=== PATIENT | female | born 1960 | race Caucasian/White ===

== ENCOUNTER → 2016-12-04 | Outpatient (CLI) | payer BC ==
[~2016-12-04] MED LIST: BUPRTAB51 PO; CALC625T13 PO; CIPR-255 PO; CTP/1 PO; ESTR0.5T3 PO; LISI-787 PO; MEDR2.5T PO; MELA1TAB5 PO; METR-162 PO; MULT-190 PO; MULT-506 PO; ONDA4TAB10 SL; OXYC1TAB3 PO; PANT40TA PO; SENNTAB23 PO; SERT50TA PO; TRAZ50TA35 PO
--- NOTE | 2016-12-04 15:25 | DIAGNOSTIC IMAGING REPORT ---
CHEST 2 VIEWS ROUTINE HISTORY: COUGH COMPARISON: Chest 08/30/2016. FINDINGS: The lungs are clear. Cardiac silhouette is normal in size. No pleural effusions. No pneumothorax. IMPRESSION: No acute process. Electronically signed by: Yonathan Griffiths M.D. 12/04/2016 3:23 PM Dictated Date/Time: 12/04/2016 3:22 PM
== END | disposition home or self-care (01) ==
LOC: C.RAD 15:04
PROVIDERS: ATTEND Internal Medicine
DX: R05 Cough (principal)

== ENCOUNTER → 2017-02-28 | Outpatient (CLI) | payer BC | END | disposition home or self-care (01) | LOC: C.LABSPEC 17:42 | PROVIDERS: ATTEND Obstetrics & Gynecology | DX: N95.0 Postmenopausal bleeding (principal) ==

== ENCOUNTER → 2017-03-09 | Outpatient (CLI) | payer BC | END | disposition home or self-care (01) | LOC: C.PAPS 09:49 | PROVIDERS: ATTEND Obstetrics & Gynecology | DX: Z01.419 Encounter for gynecological examination (general) (routine) without abnormal findings (principal); Z87.42 Personal history of other diseases of the female genital tract ==

== ENCOUNTER → 2017-05-05 | Outpatient (CLI) | payer BC ==
--- NOTE | 2017-05-05 15:25 | DIAGNOSTIC IMAGING REPORT ---
ABDOMEN FOR HERNIA CLINICAL HISTORY: Acute abdominal pain. Evaluate for inguinal or femoral hernia. COMPARISON STUDY: No previous studies for comparison. FINDINGS: No right or left inguinal or femoral hernia was identified by sonography. Note was made of a prominent structure within the right lower quadrant which demonstrated gut signature. This likely reflects a bowel loop. The appendix could appear similar although is considered less likely. IMPRESSION: 1. No inguinal or femoral hernia identified. 2. Prominent structure within the right lower quadrant which likely reflects a bowel loop. An abnormal appendix could appear similar although is considered somewhat less likely. This finding is nonspecific but the patient was tender at this site. If persistent pain, a CT of the abdomen and pelvis could be obtained. Electronically signed by: Raman Champan M.D. 05/05/2017 3:24 PM Dictated Date/Time: 05/05/2017 3:19 PM
--- NOTE | 2017-05-05 15:35 | DIAGNOSTIC IMAGING REPORT ---
KUB (3 views) CLINICAL HISTORY: Abdominal pain COMPARISON STUDY: No previous studies for comparison. FINDINGS: There are surgical clips within the right upper quadrant consistent with a prior cholecystectomy. There is scattered stool throughout the colon. There is no pathologic bowel dilatation. There are no calcifications suspicious for renal calculi. Pelvic basin calcifications likely represent phleboliths. There is an L5 spina bifida occulta. IMPRESSION: No evidence of bowel obstruction. Electronically signed by: Abdoul Delong M.D. 05/05/2017 3:33 PM Dictated Date/Time: 05/05/2017 3:32 PM
== END | disposition home or self-care (01) ==
LOC: C.ULTR 14:47
PROVIDERS: ATTEND Nurse Practitioner Family
DX: R10.9 Unspecified abdominal pain (principal); K59.00 Constipation, unspecified

== ENCOUNTER 2017-05-06 19:15 | Emergency (ER) | payer BC ==
[~2017-05-06] VITALS: Ht 172.7 cm; Wt 82.6 kg
[~2017-05-06 19:15] MED LIST changes: -CALC625T13 PO; -CIPR-255 PO; -METR-162 PO; -ONDA4TAB10 SL; -OPTIRAY 320 IV PRN; -OXYC1TAB3 PO; -PANT40TA PO; -SENNTAB23 PO
[2017-05-06 19:18] VITALS: TEMP 37; Ht 172.7 cm; Wt 82.6 kg
[2017-05-06] MEDS ORDERED: SODIUM CHLORIDE 0.9% 1000ML 1,000 ML IV STA (19:36)
[2017-05-06] MEDS ORDERED: PIPERACILLIN/TAZOBACTAM 4.5 GM/100ML D5W IV STA (19:36)
--- NOTE | 2017-05-06 19:45 | EMERGENCY ROOM VISIT NOTE ---
History Report prepared by Kelley: Homero Guillen Under the Supervision of: Anibal ThackerO. First contact with patient: 19:32 Chief Complaint: ABDOMINAL PAIN Stated Complaint: NEEDS IV ANTIBOITIC Nursing Triage Summary: Pt reports she has had abdominal pain and constipation since Tuesday. Pt had xray and US yesterday that were abnormal, and an outpatient CT scan today. Pt was told she has an abcess and diverticulitis and she needs IV antibiotics History of Present Illness The patient is a 57 year old female who presents to the Emergency Room with complaints of severe and worsening abdominal pain that began on Tuesday night, three days prior to arrival. The patient states that her pain began while having a bowel movement. She visited her primary care physician yesterday to have a ultra sound of her abdomen performed. This imaging study ruled out hernia but did reveal some unusual findings. She was advised to come back to [facility] today for a CT of her abdomen. This CT revealed diverticulitis and an abscess. She was again advised to come back to the emergency department to be admitted for further care. She is currently complaining of chills, but denies nausea, vomiting, rectal bleeding, or tarry stools. She does have a history of chronic constipation. Source of History: patient Onset: 3 days PALLET REPAIRER Position: abdomen, other Symptom Intensity: severe Timing: worsening Associated Symptoms: + chills, No nausea, No vomiting, No melena, No diarrhea Review of Systems See HPI for pertinent positives & negatives. A total of 10 systems reviewed and were otherwise negative. Past Medical & Surgical Medical Problems: (1) Depressive Disorder Nec (2) Hypertension Nos Surgical Problems: (1) History of cholecystectomy (2) Hx of LASIK Family History CHF (congestive heart failure) COPD (chronic obstructive pulmonary disease) Diabetes mellitus Hypertension No Family History of: DVT FHx: early ID Pulmonary embolism Social History Smoking Status: Never Smoker Alcohol Use: occasionally Marital Status: Housing Status: lives with family Occupation Status: employed Current/Historical Medications Scheduled Bupropion (Wellbutrin-Xl), 300 MG PO QAM Ciprofloxacin Hcl (Cipro), 500 MG PO BID Clonidine Hcl (Catapres), 0.1 MG PO HS Estradiol (Estradiol), 1 TAB PO QPM Lisinopril/Hctz (Zestoretic 20MG/12.5MG), 1 TAB PO QAM Medroxyprogesterone (Provera), 2.5 MG PO HS Metronidazole (Flagyl), 500 MG PO TID Multivitamin (Multivitamin), 1 TAB PO QAM Ocuvite Preservision (Ocuvite Preservision), 1 TAB PO HS Ondasetron Odt (Zofran Odt), 4 MG SL Q6H Sertraline (Zoloft), 50 MG PO QAM Trazodone Hcl (Trazodone), 50 MG PO HS Scheduled PRN Oxycodone Immediate Rel Tab (Roxicodone Ir), 1-2 TAB PO Q4H PRN for Severe Pain Allergies Coded Allergies: Aspirin (Unverified Allergy, Mild, "ESOPHAGEAL BURNING", 05/06/17) Tetracycline (Unverified Allergy, Mild, "ESOPHAGEAL BURNING", 05/06/17) Cat Dander (Verified Allergy, Unknown, Unknown reaction, 05/06/17) Dog Dander (Verified Allergy, Unknown, Unknown reaction, 05/06/17) Physical Exam Vital Signs Date Time Temp Pulse Resp B/P (MAP) Pulse Ox O2 Delivery O2 Flow Rate FiO2 05/06/17 21:40 72 18 115/65 99 Room Air 05/06/17 19:18 37.0 20 18 123/82 100 Room Air Physical Exam GENERAL: Patient is awake, alert, and mildly anxious appearing. Patient is resting comfortably. EYES: The conjunctivae are clear. The pupils are round and reactive. EARS, NOSE, MOUTH AND THROAT: The nose is without any evidence of any deformity. Mucous membranes are moist tongue is midline NECK: The neck is nontender and supple. RESPIRATORY: Normal respiratory effort is noted there is no evidence of wheezing rhonchi or rales CARDIOVASCULAR: Regular rate and rhythm noted there no murmurs rubs or gallops normal S1 normal S2 GASTROINTESTINAL: The abdomen is mildly distended but soft. Bowel sounds are present in all quadrants. There is lower abdominal tenderness to palpation. No specific rebounding, guarding, or rigidity. MUSCULOSKELETAL/EXTREMITIES: There is no evidence of gross deformity full range of motion is noted in the hips and shoulders SKIN: There is no obvious evidence of any rash. There are no petechiae, pallor or cyanosis noted. NEUROLOGIC: Patient is awake alert and oriented x3. Medical Decision & Procedures Laboratory Results 05/06/17 19:50 Red Blood Count 4.53, Mean Corpuscular Volume 87.2, Mean Corpuscular Hemoglobin 29.4, Mean Corpuscular Hemoglobin Concent 33.7, Mean Platelet Volume 9.3, Neutrophils (%) (Auto) 71.9, Lymphocytes (%) (Auto) 16.4, Monocytes (%) (Auto) 10.5, Eosinophils (%) (Auto) 0.7, Basophils (%) (Auto) 0.2, Neutrophils # (Auto ) 6.93, Lymphocytes # (Auto) 1.58, Monocytes # (Auto) 1.01, Eosinophils # (Auto ) 0.07, Basophils # (Auto) 0.02 05/06/17 19:50 05/06/17 20:40 Test 05/06/17 19:50 05/06/17 20:40 White Blood Count 9.64 K/uL (4.8-10.8) Red Blood Count 4.53 M/uL (4.2-5.4) Hemoglobin 13.3 g/dL (12.0-16.0) Hematocrit 39.5 % (37-47) Mean Corpuscular Volume 87.2 fL (80-100) Mean Corpuscular Hemoglobin 29.4 pg (25-34) Mean Corpuscular Hemoglobin Concent 33.7 g/dl (32-36) Platelet Count 302 K/uL (130-400) Mean Platelet Volume 9.3 fL (7.4-10.4) Neutrophils (%) (Auto) 71.9 % Lymphocytes (%) (Auto) 16.4 % Monocytes (%) (Auto) 10.5 % Eosinophils (%) (Auto) 0.7 % Basophils (%) (Auto) 0.2 % Neutrophils # (Auto) 6.93 K/uL (1.4-6.5) Lymphocytes # (Auto) 1.58 K/uL (1.2-3.4) Monocytes # (Auto) 1.01 K/uL (0.11-0.59) Eosinophils # (Auto) 0.07 K/uL (0-0.5) Basophils # (Auto) 0.02 K/uL (0-0.2) RDW Standard Deviation 42.3 fL (36.4-46.3) RDW Coefficient of Variation 13.1 % (11.5-14.5) Immature Granulocyte % (Auto) 0.3 % Immature Granulocyte # (Auto) 0.03 K/uL (0.00-0.02) Anion Gap 9.0 mmol/L (3-11) Est Creatinine Clear Calc Drug Dose 94.6 ml/min Estimated GFR () 105.2 Estimated GFR (Non- 90.8 BUN/Creatinine Ratio 17.8 (10-20) Calcium Level 8.9 mg/dl (8.5-10.1) Total Bilirubin 0.5 mg/dl (0.2-1) Aspartate Amino Transf (AST/SGOT) 16 U/L (15-37) Alanine Aminotransferase (ALT/SGPT) 22 U/L (12-78) Alkaline Phosphatase 79 U/L (45-117) Total Protein 7.2 gm/dl (6.4-8.2) Albumin 3.4 gm/dl (3.4-5.0) Lipase 352 U/L (73-393) Chemistry Specimen Hemolysis Prothrombin Time 10.7 SECONDS (9.0-12.0) Prothromb Time International Ratio 1.0 (0.9-1.1) Activated Partial Thromboplast Time 27.7 SECONDS (21.0-31.0) Partial Thromboplastin Ratio 1.1 Direct Bilirubin 0.2 mg/dl (0-0.2) Laboratory results per my review. Medications Administered Medications (Trade) Dose Ordered Sig/Rose Route Start Time Stop Time Status Last Admin Dose Admin Sodium Chloride 1,000 ml @ 999 mls/hr Q1H1M STAT IV 05/06/17 19:36 05/06/17 20:36 DC 05/06/17 19:53 999 MLS/HR Piperacillin Sod/ Tazobactam Sod (Zosyn Iv) 4.5 gm NOW STAT IV 05/06/17 19:36 05/06/17 19:38 DC 05/06/17 19:52 4.5 GM Ciprofloxacin (Cipro 500MG Home Pack) 1 homepack UD ONCE PO 05/06/17 21:15 05/06/17 21:16 DC 05/06/17 21:40 1 HOMEPACK Oxycodone HCl (Roxicodone Immediate Rel 5MG Home Pack) 1 homepack UD ONCE PO 05/06/17 21:15 05/06/17 21:16 DC 05/06/17 21:40 1 HOMEPACK ED Course 1934: The patient was evaluated in room B8. A complete history and physical examination were performed. 1935: Ordered Zosyn 4.5 gm IV, Sodium Chloride 1000 mL @ 999 mL/hr IV. 1945: I discussed the case [facility] He is aware of the patient. 1950: I discussed the case with Dr. Yesi AQUINO General Surgery at this time. He will evaluate the patient for possible intervention. He feels she can be managed as an outpatient. 2114: Ordered Oxycodone HCl 1 homepack PO, Ciprofloxacin 1 homepack PO. 2109: After reevaluation with the patient she is in agreement with the treatment plan. She will be discharged home. Medical Decision Differential diagnosis: Etiologies such as appendicitis, diverticulitis, PUD, biliary pathology, UTI, pancreatitis, obstruction, mesenteric ischemia, aortic pathology, infections, inflammatory bowel disease, renal colic, as well as others were entertained. Nursing notes reviewed. The patient's previous CT report was reviewed. The patient is a 57-year-old female who is been having abdominal pain for approximately one week. An outpatient CT revealed diverticulitis with intramural abscess. The patient does not a fever and her white blood cell count is normal. I [facility] as well as the on-call general surgeon. At this time it is felt the patient would do well as an outpatient with antibiotics and pain medication. She was given IV antibiotics in the emergency department. She was encouraged to follow-up with her primary care physician is possible return the emergency Department immediately for his symptoms develop such as high fever severe pain nausea vomiting rigid abdomen or if any other worrisome symptoms develop. Consults Time Called: 1939 Consulting Physician: Dr. Brenda AQUINO Hospitalist Returned Call: 1945 I discussed the case with Dr[facility]. He is aware of the patient. Additional Consults: Time Called: 1940 Consulted Physician: Dr. Yesi AQUINO General Surgery Returned Call: 1950 Additional Comments: I discussed the case with Dr. Yesi AQUINO General Surgery at this time. He will evaluate the patient for possible intervention. Impression Primary Impression: Diverticulitis Scribe Attestation The scribe's documentation has been prepared under my direction and personally reviewed by me in its entirety. I confirm that the note above accurately reflects all work, treatment, procedures, and medical decision making performed by me. Departure Information Dispostion Home / Self-Care Prescriptions Ondasetron Odt (ZOFRAN ODT) 4 Mg Tab 4 MG SL Q6H for Nausea, #15 TAB Prov: Oren Kim, DO 05/06/17 Metronidazole (FLAGYL) 500 Mg Tab 500 MG PO TID, #30 TAB Prov: Oren Kim, DO 05/06/17 Ciprofloxacin Hcl (CIPRO) 500 Mg Tab 500 MG PO BID, #20 TAB Prov: Oren Kim, DO 05/06/17 Oxycodone Immediate Rel Tab (ROXICODONE IR) 5 Mg Tab 1-2 TAB PO Q4H Y for Severe Pain, #24 TAB Prov: Oren Kim, DO 05/06/17 Referrals Shantel [email or web address] (PCP) Forms Call Back Authorization, HOME CARE DOCUMENTATION FORM, IMPORTANT VISIT INFORMATION Patient Instructions [facility] Additional Instructions Continue all medications as prescribed. Follow-up with your family this week for reevaluation. Return to the emergency department immediately if symptoms change worsen or the need arises. Problem Qualifiers Primary Impression: Diverticulitis Diverticulitis site: large intestine Diverticulitis bleeding: unspecified bleeding status Diverticulitis complication: with abscess Qualified Codes: K57.20 - Diverticulitis of large intestine with perforation and abscess without bleeding
[2017-05-06 20:01] LABS: BASO % 0.2 %; BASO ABS # 0.02 K/uL (0-0.2); COMPLETE YES; EOS % 0.7 %; HEMATOCRIT 39.5 % (37-47); IG% 0.3 %; LYMPH % 16.4 %; LYMPH ABS # 1.58 K/uL (1.2-3.4); MEAN CELL VOLUME 87.2 fL (80-100); MEAN CORPUSCULAR HEMOGLOBIN 29.4 pg (25-34); MEAN CORPUSCULAR HGB CONC 33.7 g/dl (32-36); MEAN PLATELET VOLUME 9.3 fL (7.4-10.4); MONO % 10.5 %; NEUT % 71.9 %; PLATELET COUNT 302 K/uL (130-400); RED BLOOD COUNT 4.53 M/uL (4.2-5.4); WHITE BLOOD COUNT 9.64 K/uL (4.8-10.8)
[2017-05-06 20:30] LABS: ALKALINE PHOSPHATASE 79 U/L (45-117); ALT/SGPT 22 U/L (12-78); AST/SGOT 16 U/L (15-37); BLOOD UREA NITROGEN 13 mg/dl (7-18); BUN/CREATININE RATIO 17.8 (10-20); CALCIUM 8.9 mg/dl (8.5-10.1); CARBON DIOXIDE 31 mmol/L (21-32); CHLORIDE 99 mmol/L (98-107); CREATININE 0.73 mg/dl (0.60-1.20); GLUCOSE 72 mg/dl (70-99); POTASSIUM 3.6 mmol/L (3.5-5.1); SODIUM 139 mmol/L (136-145)
[2017-05-06 20:58] LABS: PARTIAL THROMBOPLASTIN RATIO 1.1; PROTHROMBIN TIME (PATIENT) 10.7 SECONDS (9.0-12.0)
[2017-05-06 21:00] LABS: POTASSIUM 3.4 mmol/L (3.5-5.1)
[2017-05-06] MEDS ORDERED: METR-162 PO (21:08)
[2017-05-06] MEDS ORDERED: OXYC1TAB3 PO (21:08)
[2017-05-06] MEDS ORDERED: CIPR-255 PO (21:08)
[2017-05-06] MEDS ORDERED: ONDA4TAB10 SL (21:08)
[2017-05-06] MEDS ORDERED: CIPROFLOXACIN 500MG HOME PACK PO ONE (21:15)
[2017-05-06] MEDS ORDERED: OXYCODONE IR HOME PACK PO ONE (21:15)
[2017-05-06 21:40] VITALS: BP 115/65; PULSE 72; O2SAT 99
[2017-08-11] MEDS ORDERED: PANT40TA PO (12:48)
[2017-08-11] MEDS ORDERED: SENNTAB23 PO (12:48)
[2017-08-11] MEDS ORDERED: CALC625T13 PO (12:48)
== END 2017-05-06 22:04 | disposition home or self-care (01) ==
LOC: C.EDB 19:16
DX: K57.20 Diverticulitis of large intestine with perforation and abscess without bleeding (principal); I10 Essential (primary) hypertension; F33.41 Major depressive disorder, recurrent, in partial remission; Z83.3 Family history of diabetes mellitus; Z82.49 Family history of ischemic heart disease and other diseases of the circulatory system

== ENCOUNTER → 2017-05-06 | Outpatient (CLI) | payer BC ==
[~2017-05-06] MED LIST changes: +OPTIRAY 320 IV PRN
--- NOTE | 2017-05-06 17:09 | DIAGNOSTIC IMAGING REPORT ---
CT ABD/PELVIS IV AND ORAL CONT CLINICAL HISTORY: Lower abdominal pain COMPARISON STUDY: None. TECHNIQUE: Following the IV administration of 100 mL of Optiray-320, CT scan of the abdomen and pelvis was performed from the lung bases to the proximal femurs. Images are reviewed in the axial, sagittal, and coronal planes. IV contrast was administered without complication. CT DOSE: 956.98 mGycm FINDINGS: Lower chest: The heart is normal in size and configuration, without pericardial effusion. The lung bases and pleural spaces are clear. Liver: The contrast-enhanced liver is normal in size, contour, and attenuation. There is no intrahepatic biliary ductal dilatation. The hepatic veins and portal veins are patent. Gallbladder: Surgically absent Spleen: Normal in size and attenuation. Pancreas: Unremarkable. Adrenal glands: Unremarkable. Kidneys: There is a 44 mm left renal cyst. There is no hydronephrosis. Bowel: There are no transition zones indicate bowel obstruction. The appendix is not visualized with certainty. There are no findings to indicate acute appendicitis. There is marked sigmoid wall thickening with infiltration of the perisigmoid fat. The findings are indicative of acute diverticulitis. There is a suspected 17 mm intramural abscess. Peritoneum: There is no intraperitoneal free air or abdominal ascites. Vasculature: The abdominal aorta is normal in course and caliber. Adenopathy: There are multiple small aortocaval lymph nodes which are not pathologically enlarged by size criteria. Pelvic viscera: There is superior bladder wall thickening, likely secondary to the adjacent diverticulitis. Skeletal structures: There is bilateral L5 spondylolysis. There is a grade 1 spondylolisthesis of L5 and S1. IMPRESSION: 1. Acute sigmoid diverticulitis with a suspected 17 mm intramural abscess. There is secondary thickening of the superior bladder wall. Electronically signed by: Abdoul Delong M.D. 05/06/2017 5:08 PM Dictated Date/Time: 05/06/2017 5:02 PM
== END | disposition home or self-care (01) ==
LOC: C.CTS 14:44
PROVIDERS: ATTEND Nurse Practitioner Family
DX: R10.9 Unspecified abdominal pain (principal); K57.32 Diverticulitis of large intestine without perforation or abscess without bleeding; N32.9 Bladder disorder, unspecified

== ENCOUNTER 2017-05-11 10:05 | Emergency (ER) | payer BC ==
[~2017-05-11] VITALS: Ht 172.7 cm; Wt 80.5 kg
[~2017-05-11 10:05] MED LIST changes: +CIPR-255 PO; -MELA1TAB5 PO; +METR-162 PO; +ONDA4TAB10 SL; +OXYC1TAB3 PO
[2017-05-11 10:07] VITALS: TEMP 36.6; Ht 172.7 cm; Wt 80.5 kg
[2017-05-11] MEDS ORDERED: ONDANSETRON INJ 2 MG/ML 2 ML VIAL IV STA (10:25)
[2017-05-11] MEDS ORDERED: SODIUM CHLORIDE 0.9% 1000ML 2,000 ML IV STA (10:25)
[2017-05-11 11:13] LABS: BASO % 0.4 %; BASO ABS # 0.02 K/uL (0-0.2); COMPLETE YES; EOS % 0.8 %; IG% 0.4 %; LYMPH % 22.1 %; LYMPH ABS # 1.13 K/uL (1.2-3.4); MEAN CELL VOLUME 85.5 fL (80-100); MEAN CORPUSCULAR HEMOGLOBIN 28.8 pg (25-34); MEAN CORPUSCULAR HGB CONC 33.8 g/dl (32-36); MEAN PLATELET VOLUME 9.4 fL (7.4-10.4); MONO % 10.5 %; NEUT % 65.8 %; PLATELET COUNT 385 K/uL (130-400); RED BLOOD COUNT 4.68 M/uL (4.2-5.4); WHITE BLOOD COUNT 5.12 K/uL (4.8-10.8)
[2017-05-11 11:20] LABS: BUN/CREATININE RATIO 7.5 (10-20); CREATININE 0.81 mg/dl (0.60-1.20); POTASSIUM 3.1 mmol/L (3.5-5.1)
[2017-05-11 11:24] LABS: URINE APPEARANCE CLEAR (CLEAR); URINE BILIRUBIN NEG (NEG); URINE COLOR YELLOW; URINE EPITHELIAL CELL AUTO >30 /lpf (0-5); URINE NITRITE NEG (NEG); URINE PH 7.5 (4.5-7.5); URINE SPECIFIC GRAVITY 1.006 (1.000-1.030); UROBILINOGEN NEG (NEG); ZZUR CULT IF INDIC CLEAN CATCH NO
[2017-05-11] MEDS ORDERED: POTASSIUM CHLORIDE 10 MEQ TABCR PO STA (11:25)
[2017-05-11 11:27] LABS: CALCIUM 9.2 mg/dl (8.5-10.1)
[2017-05-11 11:34] LABS: MANUAL MICROSCOPIC REQUIRED? NO; REVIEW REQ? NO
[2017-05-11 12:51] VITALS: BP 145/87; PULSE 63; O2SAT 98
--- NOTE | 2017-05-11 16:38 | EMERGENCY ROOM VISIT NOTE ---
History Report prepared by Kelley: Lyssa Ayoub Under the Supervision of: Dr. Ty Kang D.O. First contact with patient: 10:11 Chief Complaint: DIARRHEA Stated Complaint: DIARRHEA, NAUSEA History of Present Illness The patient is a 57 year old female who presents to the Emergency Room with complaints of intermittent diarrhea for the past 4 days. The patient developed abdominal pain last week and saw her PCP for these symptoms. She had an US, x- ray, and CT scan as an outpatient last week. Her PCP called her and told her that the CT scan showed diverticulitis with an intramural abscess, and she should come to the ED for further evaluation at that time. The patient came to the ED 5 days ago and received IV antibiotics. She was evaluated by Dr. Walker who recommended outpatient treatment with Cipro and Flagyl. She has been taking these medications as prescribed. The patient states that the next day she started experiencing diarrhea that has persisted for the past 4 days. Two days ago she called her PCP because she was having about 50 bowel movements a day. She was advised to have clear liquids for 24 hours. Her diarrhea improved slightly with the liquid diet. Last night she ate some Jello and a few pretzels and states that almost immediately her diarrhea worsened. Her stool is dark green and watery. The patient states that her abdominal pain has improved but she is still having occasional shooting pains that she rates as a 4/10 in severity. 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 She called her PCP this morning and was advised to come to the ED for evaluation. She reports a personal history of C-Diff. Pt denies headache, fevers, chest pain, shortness of breath, vomiting, pain with urination , and melena. Source of History: patient Onset: 4 days ago Position: abdomen Symptom Intensity: 4/10 Quality: other (watery, dark green diarrhea) Timing: intermittent Modifying Factors (Worsening): eating Modifying Factors (Relieving): other (liquid diet) Associated Symptoms: + nausea, + abdominal pain, No fevers, No headache, No chest pain, No SOB, No vomiting, No melena, No urinary symptoms Review of Systems See HPI for pertinent positives & negatives. A total of 10 systems reviewed and were otherwise negative. Past Medical & Surgical Medical Problems: (1) Depressive Disorder Nec (2) Hypertension Nos Surgical Problems: (1) History of cholecystectomy (2) Hx of LASIK Family History CHF (congestive heart failure) COPD (chronic obstructive pulmonary disease) Diabetes mellitus Hypertension No Family History of: DVT FHx: early [place] Pulmonary embolism Social History Smoking Status: Former Smoker Alcohol Use: occasionally Marital Status: Housing Status: lives with family Occupation Status: employed Current/Historical Medications Scheduled Bupropion (Wellbutrin-Xl), 300 MG PO QAM Ciprofloxacin Hcl (Cipro), 500 MG PO BID Clonidine Hcl (Catapres), 0.1 MG PO HS Estradiol (Estradiol), 1 TAB PO QPM Lisinopril/Hctz (Zestoretic 20MG/12.5MG), 1 TAB PO QAM Medroxyprogesterone (Provera), 2.5 MG PO HS Metronidazole (Flagyl), 500 MG PO TID Multivitamin (Multivitamin), 1 TAB PO QAM Ocuvite Preservision (Ocuvite Preservision), 1 TAB PO HS Ondasetron Odt (Zofran Odt), 4 MG SL Q6H Sertraline (Zoloft), 50 MG PO QAM Trazodone Hcl (Trazodone), 50 MG PO HS Scheduled PRN Oxycodone Immediate Rel Tab (Roxicodone Ir), 1-2 TAB PO Q4H PRN for Severe Pain Allergies Coded Allergies: Aspirin (Unverified Allergy, Mild, "ESOPHAGEAL BURNING", 05/11/17) Tetracycline (Unverified Allergy, Mild, "ESOPHAGEAL BURNING", 05/11/17) Cat Dander (Verified Allergy, Unknown, Unknown reaction, 05/11/17) Dog Dander (Verified Allergy, Unknown, Unknown reaction, 05/11/17) Physical Exam Vital Signs Date Time Temp Pulse Resp B/P (MAP) Pulse Ox O2 Delivery O2 Flow Rate FiO2 05/11/17 12:51 63 16 145/87 98 05/11/17 11:45 61 16 152/91 98 Room Air 05/11/17 10:07 36.6 65 20 114/82 97 Room Air Physical Exam GENERAL: alert, sitting up in bed, well appearing, well nourished, no distress, non-toxic EYE EXAM: normal conjunctiva, PERRL and EOM's intact OROPHARYNX: no exudate, no erythema, lips, buccal mucosa, and tongue normal and mucous membranes are moist NECK: supple, no nuchal rigidity, no adenopathy, non-tender LUNGS: Clear to auscultation. Normal chest wall mechanics HEART: no murmurs, S1 normal and S2 normal ABDOMEN: abdomen soft, non-tender, normo-active bowel sounds, no masses, no rebound or guarding. Stool heme negative. BACK: Back is symmetrical on inspection and there is no deformity, no midline tenderness, no CVA tenderness. SKIN: no rashes and no bruising UPPER EXTREMITIES: upper extremities are grossly normal. LOWER EXTREMITIES: No pitting edema. NEURO EXAM: Normal sensorium, cranial nerves II-XII grossly intact, normal speech, no gross weakness of arms, no gross weakness of legs. Medical Decision & Procedures Laboratory Results 05/11/17 10:35 Red Blood Count 4.68, Mean Corpuscular Volume 85.5, Mean Corpuscular Hemoglobin 28.8, Mean Corpuscular Hemoglobin Concent 33.8, Mean Platelet Volume 9.4, Neutrophils (%) (Auto) 65.8, Lymphocytes (%) (Auto) 22.1, Monocytes (%) (Auto) 10.5, Eosinophils (%) (Auto) 0.8, Basophils (%) (Auto) 0.4, Neutrophils # (Auto ) 3.37, Lymphocytes # (Auto) 1.13, Monocytes # (Auto) 0.54, Eosinophils # (Auto ) 0.04, Basophils # (Auto) 0.02 05/11/17 10:35 Test 05/11/17 10:30 05/11/17 10:35 Urine Color YELLOW Urine Appearance CLEAR (CLEAR) Urine pH 7.5 (4.5-7.5) Urine Specific [place] 1.006 (1.000-1.030) Urine Protein NEG (NEG) Urine Glucose (UA) NEG (NEG) Urine Ketones NEG (NEG) Urine Occult Blood NEG (NEG) Urine Nitrite NEG (NEG) Urine Bilirubin NEG (NEG) Urine Urobilinogen NEG (NEG) Urine Leukocyte Esterase NEG (NEG) Urine WBC (Auto) 1-5 /hpf (0-5) Urine RBC (Auto) 0-4 /hpf (0-4) Urine Hyaline Casts (Auto) 1-5 /lpf (0-5) Urine Epithelial Cells (Auto) >30 /lpf (0-5) Urine Bacteria (Auto) NEG (NEG) White Blood Count 5.12 K/uL (4.8-10.8) Red Blood Count 4.68 M/uL (4.2-5.4) Hemoglobin 13.5 g/dL (12.0-16.0) Hematocrit 40.0 % (37-47) Mean Corpuscular Volume 85.5 fL (80-100) Mean Corpuscular Hemoglobin 28.8 pg (25-34) Mean Corpuscular Hemoglobin Concent 33.8 g/dl (32-36) Platelet Count 385 K/uL (130-400) Mean Platelet Volume 9.4 fL (7.4-10.4) Neutrophils (%) (Auto) 65.8 % Lymphocytes (%) (Auto) 22.1 % Monocytes (%) (Auto) 10.5 % Eosinophils (%) (Auto) 0.8 % Basophils (%) (Auto) 0.4 % Neutrophils # (Auto) 3.37 K/uL (1.4-6.5) Lymphocytes # (Auto) 1.13 K/uL (1.2-3.4) Monocytes # (Auto) 0.54 K/uL (0.11-0.59) Eosinophils # (Auto) 0.04 K/uL (0-0.5) Basophils # (Auto) 0.02 K/uL (0-0.2) RDW Standard Deviation 38.5 fL (36.4-46.3) RDW Coefficient of Variation 12.4 % (11.5-14.5) Immature Granulocyte % (Auto) 0.4 % Immature Granulocyte # (Auto) 0.02 K/uL (0.00-0.02) Anion Gap 10.0 mmol/L (3-11) Est Creatinine Clear Calc Drug Dose 84.3 ml/min Estimated GFR () 92.8 Estimated GFR (Non- 80.1 BUN/Creatinine Ratio 7.5 (10-20) Calcium Level 9.2 mg/dl (8.5-10.1) Total Bilirubin 0.6 mg/dl (0.2-1) Direct Bilirubin 0.1 mg/dl (0-0.2) Aspartate Amino Transf (AST/SGOT) 34 U/L (15-37) Alanine Aminotransferase (ALT/SGPT) 33 U/L (12-78) Alkaline Phosphatase 84 U/L (45-117) Total Protein 7.2 gm/dl (6.4-8.2) Albumin 3.5 gm/dl (3.4-5.0) Lipase 164 U/L (73-393) Date/Time Source Procedure Growth Status 05/11/17 10:36 Stool C.difficile Toxin B Gene (PCR) - Final No C. difficile toxin B gene detected Complete Laboratory results per my review. Medications Administered Medications (Trade) Dose Ordered Sig/Rose Route Start Time Stop Time Status Last Admin Dose Admin Sodium Chloride 2,000 ml @ 999 mls/hr Q2H1M STAT IV 05/11/17 10:25 05/11/17 12:25 DC 05/11/17 10:45 999 MLS/HR Ondansetron HCl (Zofran Inj) 4 mg NOW STAT IV 05/11/17 10:25 05/11/17 10:26 DC 05/11/17 10:45 4 MG Potassium Chloride (Klor-Con M10) 40 meq NOW STAT PO 05/11/17 11:25 05/11/17 11:26 DC 05/11/17 11:43 40 MEQ ED Course ED COURSE: Vital signs were reviewed and showed normal vitals. The patients medical record was reviewed The above diagnostic studies were performed and reviewed. ED treatments and interventions as stated above. 1015: The patient was evaluated in room B11B. A complete history and physical examination was performed. 1025: Zofran 4 mg IV, NSS 2000 ml @ 999 mls/hr IV 1125: Klor-Con M10 40 meq PO 1213: I reassessed the patient and she feels better. I updated her on the results and we are waiting on the results of her C-Diff. 1241: Upon reevaluation, the patient is resting comfortably. I discussed my findings with the patient and she understands and agrees with the treatment plan. Based on the patients age, coexisting illnesses, exam and lab findings the decision to treat as an outpatient was made. The patient remained stable while under my care. The patient appeared well at the time of discharge. Medical Decision Differential diagnoses includes but is not limited to gastritis, peptic ulcer disease, GERD, gallbladder disease, pancreatitis, small bowel obstruction, acute coronary syndrome, pericarditis, ischemic bowel, irritable bowel disease, irritable bowel syndrome, appendicitis, diverticulitis, malignancy, hernia, urinary tract infection, torsion, perforation, trauma, infectious. Medication Reconciliation: I attest that I have personally reviewed the patient' s current medication list. Blood pressure screening: Patient was found to have an elevated blood pressure and was referred to their primary doctor for recheck and further treatment. Patient is a 57-year-old female with a recent diagnosis of diverticulitis with an intramural abscess was seen in the ER in case discussed with general surgery. She is placed on oral antibiotics and discharged home. Her pain has improved significantly. She does have a history of diverticulitis. CBC along with BMP shows a potassium of 3.1. LFTs along with bilirubin and lipase is negative. UA was negative. Potassium was repleted. She was given a bolus normal saline. Stool culture was negative for C. difficile. Patient had no significant abdominal pain on exam and was discharged to follow-up with primary care doctor and GI for her and she mural abscess and diarrhea. Impression Primary Impression: Diarrhea Additional Impressions: Hypokalemia Diverticulitis Scribe Attestation The scribe's documentation has been prepared under my direction and personally reviewed by me in its entirety. I confirm that the note above accurately reflects all work, treatment, procedures, and medical decision making performed by me. Departure Information Dispostion Home / Self-Care Referrals Shantel Hayes D.O. (PCP) Forms HOME CARE DOCUMENTATION FORM, IMPORTANT VISIT INFORMATION, WORK / SCHOOL INSTRUCTIONS Patient Instructions ED Diarrhea Viral, ED Diverticulitis, My [facility] Additional Instructions Please follow up with your primary care doctor with in the next 24 hours. Any worsening of your symptoms, please return to the ED immediately. this includes fevers greater than 100.4, worsening abdominal pain, passing out, blood in your stool, or any other concerning signs or symptoms from your standpoint. Please make sure you follow up with your primary care doctor and surgeon. Please which to a bland diet consisting of mostly liquids. Problem Qualifiers Primary Impression: Diarrhea Diarrhea type: unspecified type Qualified Codes: R19.7 - Diarrhea, unspecified Additional Impressions: Diverticulitis Diverticulitis site: unspecified part of intestinal tract Diverticulitis bleeding: unspecified bleeding status Diverticulitis complication: with abscess Qualified Codes: K57.80 - Diverticulitis of intestine, part unspecified, with perforation and abscess without bleeding
[2017-08-11] MEDS ORDERED: CALC625T13 PO (12:48)
[2017-08-11] MEDS ORDERED: SENNTAB23 PO (12:48)
[2017-08-11] MEDS ORDERED: PANT40TA PO (12:48)
== END 2017-05-11 12:53 | disposition home or self-care (01) ==
LOC: C.EDB 10:06
DX: R19.7 Diarrhea, unspecified (principal); E87.6 Hypokalemia; K57.80 Diverticulitis of intestine, part unspecified, with perforation and abscess without bleeding; R10.9 Unspecified abdominal pain; I10 Essential (primary) hypertension; F32.9 Major depressive disorder, single episode, unspecified; Z79.899 Other long term (current) drug therapy; Z86.19 Personal history of other infectious and parasitic diseases; Z87.891 Personal history of nicotine dependence; Z82.49 Family history of ischemic heart disease and other diseases of the circulatory system; Z83.3 Family history of diabetes mellitus; Z83.6 Family history of other diseases of the respiratory system

== ENCOUNTER → 2017-05-19 | Outpatient (CLI) | payer BC ==
[~2017-05-19] MED LIST changes: +CALC625T13 PO; -METR-162 PO; +OPTIRAY 320 IV PRN; +PANT40TA PO; +SENNTAB23 PO
--- NOTE | 2017-05-19 11:13 | DIAGNOSTIC IMAGING REPORT ---
CT ABD/PELVIS IV AND ORAL CONT CLINICAL HISTORY: K57.92 Acute [id number] LOWER ABDOMINAL PAIN. DIARRHEA. COMPARISON STUDY: 05/06/2017 TECHNIQUE: Following the IV administration of 94 mL of Optiray-320, CT scan of the abdomen and pelvis was performed from the lung bases to the proximal femurs. Images are reviewed in the axial, sagittal, and coronal planes. IV contrast was administered without complication. CT DOSE: 831.84 mGycm FINDINGS: Lower chest: The heart is normal in size and configuration, without pericardial effusion. The lung bases and pleural spaces are clear. Liver: The contrast-enhanced liver is normal in size, contour, and attenuation. There is no intrahepatic biliary ductal dilatation. The hepatic veins and portal veins are patent. Gallbladder: Surgically absent Spleen: Normal in size and attenuation. Pancreas: Unremarkable. Adrenal glands: Unremarkable. Kidneys: There is a 44 mm left renal cyst. Bowel: There are no transition zones indicate bowel obstruction. There is been marked improvement in the previous described sigmoid diverticulitis. There is no evidence of abscess. The appendix is not visualized with certainty. Peritoneum: There is no intraperitoneal free air or abdominal ascites. Vasculature: The abdominal aorta is normal in course and caliber. Adenopathy: None. Pelvic viscera: Bladder wall thickening is likely secondary to a nondistended bladder. Skeletal structures: No destructive osseous lesions are seen. IMPRESSION: Near complete interval resolution of the previous identified sigmoid diverticulitis. No evidence of abscess. Electronically signed by: Abdoul Delong M.D. 05/19/2017 11:11 AM Dictated Date/Time: 05/19/2017 11:07 AM
== END | disposition home or self-care (01) ==
LOC: C.CTS 08:32
PROVIDERS: ATTEND Registered Nurse
DX: K57.92 Diverticulitis of intestine, part unspecified, without perforation or abscess without bleeding (principal); R19.7 Diarrhea, unspecified; R10.30 Lower abdominal pain, unspecified; N28.1 Cyst of kidney, acquired

== ENCOUNTER → 2017-08-09 | Outpatient (CLI) | payer BC ==
[~2017-08-09] MED LIST changes: -OPTIRAY 320 IV PRN
--- NOTE | 2017-08-09 10:25 | DIAGNOSTIC IMAGING REPORT ---
(BARIUM SWALLOW) ESOPHAGUS CLINICAL HISTORY: ESOPHAGEAL DYSPHAGIA,REFLUX DISEASE COMPARISON STUDY: None FLUOROSCOPY TIME: 1.1 minutes. 20 fluoroscopic spot images were acquired.. NUMBER OF FLUOROSCOPIC IMAGES: 20 FINDINGS: The patient swallowed effervescent granules and barium without difficulty. Rapid sequence swallows were obtained in the AP and lateral projections. There is no aspiration. No esophageal masses or ulcerations are visualized. The patient swallowed one half barium tablet which freely passed into the stomach. IMPRESSION: No significant abnormalities. Electronically signed by: Abdoul Delong M.D. 08/09/2017 10:23 AM Dictated Date/Time: 08/09/2017 10:22 AM
== END | disposition home or self-care (01) ==
LOC: C.RAD 09:50
PROVIDERS: ATTEND Registered Nurse
DX: K20.9 Esophagitis, unspecified (principal); K21.9 Gastro-esophageal reflux disease without esophagitis; R13.14 Dysphagia, pharyngoesophageal phase

== ENCOUNTER → 2017-08-19 | Day surgery (SDC) | payer BC ==
[2017-08-11 12:49] VITALS: Ht 172.7 cm; Wt 77.3 kg
[~2017-08-19] VITALS: Ht 172.7 cm; Wt 77.3 kg
[~2017-08-19] MED LIST changes: -CIPR-255 PO; +LIDOCAINE HCL 2% 2 ML VIAL (20MG/ML) ONE; -MULT-190 PO; -ONDA4TAB10 SL; -OXYC1TAB3 PO; +PROPOFOL IV EMULSION 10 MG/ML 20 ML VIAL IV ONE; +SODIUM CHLORIDE 0.9% 500ML 500 ML IV ONE
--- NOTE | 2017-08-19 11:56 | Endo History and Physical ---
History & Physical Date of Service: Aug 19, 2017. Chief Complaint: ACUTE DIVERTICULITIS Referring Physician: DR. CLIFTON History of Present Illness 57 yo CF who presents for colonoscopy secondary to acute diverticulitis. Past Surgical History Hx Cardiac Surgery: No Hx Internal Defibrillator: No Hx Pacemaker: No Hx Abdominal Surgery: Yes (D&C, SELVIN) Hx of Implantable Prosthesis: No Hx Post-Op Nausea and Vomiting: No Hx Cancer Surgery: No Hx Thoracic Surgery: No Hx Orthopedic: No Hx Urinary Tract Surgery: No Family History IBD Social History Smoking Status: Former Smoker Hx Substance Use: No Hx Alcohol Use: No Allergies Coded Allergies: Aspirin (Verified Allergy, Mild, "ESOPHAGEAL BURNING", 08/11/17) Tetracycline (Verified Allergy, Mild, "ESOPHAGEAL BURNING", 08/11/17) Cat Dander (Verified Allergy, Unknown, Unknown reaction, 08/11/17) Dog Dander (Verified Allergy, Unknown, Unknown reaction, 08/11/17) Current Medications Reported Home Medications Medications Dose Route/Sig Max Daily Dose Days Date Category Stool Softener (Sennosides-Docusate Sodium) 1 Tab Tab 1 Tab PO BID 08/11/17 Reported Fiber Tabs (Calcium Polycarbophil) 625 Mg Tab 1 Tab PO BID 08/11/17 Reported Protonix (Pantoprazole Sodium) 40 Mg Tab 40 Mg PO QPM 08/11/17 Reported Zoloft (Sertraline HCl) 50 Mg Tab 50 Mg PO QAM 10/11/16 Reported Trazodone (Trazodone HCl) 50 Mg Tab 50 Mg PO HS 10/11/16 Reported Multivitamin (Multivitamins) Tab 1 Tab PO QAM 10/11/16 Reported Provera (Medroxyprogesterone Acetate) 2.5 Mg Tab 2.5 Mg PO Q2D 10/11/16 Reported Zestoretic 20MG/12.5MG (HCTZ/Lisinopril) Tab 1 Tab PO QAM 10/11/16 Reported Catapres (Clonidine Hcl) 0.1 Mg Tab 0.1 Mg PO HS 08/30/16 Reported Estradiol 0.5 Mg Tab 1 Tab PO Q2D 08/30/16 Reported Wellbutrin-Xl (Bupropion HCl) 300 Mg Tabcr 300 Mg PO QAM 08/30/16 Reported Vital Signs Weight (Kilograms): 77.27 Height (Feet): 5 Height (Inches): 8 Date Time Temp Pulse Resp B/P (MAP) Pulse Ox O2 Delivery O2 Flow Rate FiO2 08/19/17 11:17 36.5 60 16 118/66 (83) 96 Room Air Physical Exam General Appearance: WD/WN, no apparent distress Respiratory/Chest: Auscultation: breath sounds normal Cardiovascular: Heart Auscultation: RRR Abdomen: Bowel Sounds: normal Inspection & Palpation: soft, non-distended, no tenderness, guarding & rebound Assessment and Plan Assessment: 57 yo CF who presents for colonoscopy secondary to acute diverticulitis. Plan: Proceed with colonoscopy.
--- NOTE | 2017-08-19 12:31 | GI REPORT ---
Procedure Date: 08/19/2017 11:19 AM Procedure: Colonoscopy Indications: Follow-up of diverticulitis Medicines: Monitored Anesthesia Care Complications: No immediate complications. Estimated Blood Loss: Estimated blood loss: none. Procedure: Pre-Anesthesia Assessment: - Prior to the procedure, a History and Physical was performed, and patient medications and allergies were reviewed. The patient's tolerance of previous anesthesia was also reviewed. The risks and benefits of the procedure and the sedation options and risks were discussed with the patient. All questions were answered, and informed consent was obtained. Prior Anticoagulants: The patient has taken no previous anticoagulant or antiplatelet agents. ASA Grade Assessment: II - A patient with mild systemic disease. After reviewing the risks and benefits, the patient was deemed in satisfactory condition to undergo the procedure. After I obtained informed consent, the scope was passed under direct vision. Throughout the procedure, the patient's blood pressure, pulse, and oxygen saturations were monitored continuously. The scope was introduced through the anus and advanced to the terminal ileum. The colonoscopy was performed without difficulty. The patient tolerated the procedure well. The quality of the bowel preparation was good. The terminal ileum, ileocecal valve, appendiceal orifice, and rectum were photographed. Findings: A 3 mm polyp was found in the ascending colon. The polyp was sessile. The polyp was removed with a cold biopsy forceps. Resection and retrieval were complete. Multiple small-mouthed diverticula were found in the sigmoid colon. Non-bleeding internal hemorrhoids were found during retroflexion. The hemorrhoids were small. Impression: - One 3 mm polyp in the ascending colon, removed with a cold biopsy forceps. Resected and retrieved. - Diverticulosis in the sigmoid colon. - Non-bleeding internal hemorrhoids. Recommendation: - Resume previous diet. - Continue present medications. - Repeat colonoscopy for surveillance based on pathology results. - Return to primary care physician as previously scheduled. Elliot Bobo DO 08/19/2017 12:31:09 PM This report has been signed electronically. Note Initiated On: 08/19/2017 11:19 AM I attest to the content of the Intraoperative Record and orders documented therein, exceptions below
--- NOTE | 2017-08-19 12:32 | Discharge Instructions ---
Endoscopy Patient Instructions Date / Procedure(s) Performed Aug 19, 2017. Colonoscopy Allergy Information Coded Allergies: Aspirin (Verified Allergy, Mild, "ESOPHAGEAL BURNING", 08/11/17) Tetracycline (Verified Allergy, Mild, "ESOPHAGEAL BURNING", 08/11/17) Cat Dander (Verified Allergy, Unknown, Unknown reaction, 08/11/17) Dog Dander (Verified Allergy, Unknown, Unknown reaction, 08/11/17) Discharge Date / Findings Aug 19, 2017. Colon polyp Diverticulosis Internal hemorrhoids Medication Instructions OK to resume all medications today as prescribed Reported Home Medications Medications Dose Route/Sig Max Daily Dose Days Date Category Stool Softener (Sennosides-Docusate Sodium) 1 Tab Tab 1 Tab PO BID 08/11/17 Reported Fiber Tabs (Calcium Polycarbophil) 625 Mg Tab 1 Tab PO BID 08/11/17 Reported Protonix (Pantoprazole Sodium) 40 Mg Tab 40 Mg PO QPM 08/11/17 Reported Zoloft (Sertraline HCl) 50 Mg Tab 50 Mg PO QAM 10/11/16 Reported Trazodone (Trazodone HCl) 50 Mg Tab 50 Mg PO HS 10/11/16 Reported Multivitamin (Multivitamins) Tab 1 Tab PO QAM 10/11/16 Reported Provera (Medroxyprogesterone Acetate) 2.5 Mg Tab 2.5 Mg PO Q2D 10/11/16 Reported Zestoretic 20MG/12.5MG (HCTZ/Lisinopril) Tab 1 Tab PO QAM 10/11/16 Reported Catapres (Clonidine Hcl) 0.1 Mg Tab 0.1 Mg PO HS 08/30/16 Reported Estradiol 0.5 Mg Tab 1 Tab PO Q2D 08/30/16 Reported Wellbutrin-Xl (Bupropion HCl) 300 Mg Tabcr 300 Mg PO QAM 08/30/16 Reported Provider Instructions Activity Restrictions - No exercising or heavy lifting for 24 hours. - Do not drink alcohol the day of the procedure. - Do not drive a car or operate machinery until the day after the procedure. - Do not make any important decisions or sign important papers in 24 hours after the procedure. Following Day: - Return to full activity which may include returning to work/school. Diet Start your diet with liquids and light foods (jello, soup, juice, toast). Then eat your usual diet if not nauseated. Treatment For Common After Affects For mild abdominal pain, bloating, or excessive gas: - Rest - Eat lightly - Lie on right side Follow-Up Information Follow-up with DR. CLIFTON as scheduled Anesthesia Information What You Should Know You have had a procedure that required some medicine to reduce anxiety and discomfort. This treatment is called moderate sedation. After receiving the treatment, you may be sleepy, but you will be able to breathe on your own. The effects of the treatment may last for several hours. Follow these instructions along with Activity/Diet recommendations noted above: * Do NOT do anything where dizziness or clumsiness would be dangerous. * Rest quietly at home today, then you can be up and about tomorrow. * Have a responsible person stay with you the rest of today. * You may have had an I.V. today. If so, you may take the dressing off later today. Recommendations Call your doctor if: * Trouble breathing * Continuous vomiting for more than 24 hours * Temperature above 101 degrees * Severe abdominal pain or bloating * Pain not relieved by pain medicine ordered * There is increased drainage or redness from any incision * A large amount of rectal bleeding greater than 2-3 tablespoons. (If you had a polyp/s removed or have hemorrhoids, a small amount of blood - from the rectum is to be expected.) * You have any unanswered questions or concerns. IN THE EVENT OF A SERIOUS EMERGENCY, GO TO THE NEAREST EMERGENCY ROOM Your discharge instructions were prepared by provider Elliot Bobo. Patient Instructions Signature Page Zaynab Jimenez Patient (or Guardian) Signature/Date: I have read and understand the instructions given to me by my caregivers. Caregiver/RN/Doctor Signature/Date: The above-named patient and/or guardian has received patient instructions on this date. + Original Patient Signature Page (only) stays with chart. Please make copy for patient.
[2017-08-19 12:50] VITALS: BP 110/69; PULSE 57; O2SAT 97
--- NOTE | 2017-08-19 13:08 | Anesthesiology Progress Note ---
Anesthesia Post Op Note Date & Time Aug 19, 2017 at 13:08 Vital Signs Pain Intensity: 0 Vital Signs Past 12 Hours Date Time Temp Pulse Resp B/P (MAP) Pulse Ox O2 Delivery O2 Flow Rate FiO2 08/19/17 12:50 57 20 110/69 (83) 97 Room Air 08/19/17 12:33 61 20 89/56 (67) 94 Room Air 08/19/17 11:17 36.5 60 16 118/66 (83) 96 Room Air Notes Mental Status: alert / awake / arousable, participated in evaluation Pt Amnestic to Procedure: Yes Nausea / Vomiting: adequately controlled Pain: adequately controlled Airway Patency, RR, SpO2: stable & adequate BP & HR: stable & adequate Hydration State: stable & adequate Anesthetic Complications: no major complications apparent
== END | disposition home or self-care (01) ==
LOC: C.GI 10:54
PROVIDERS: ATTEND Internal Medicine
DX: K57.32 Diverticulitis of large intestine without perforation or abscess without bleeding (principal); D12.2 Benign neoplasm of ascending colon; K64.8 Other hemorrhoids; K21.9 Gastro-esophageal reflux disease without esophagitis; Z90.49 Acquired absence of other specified parts of digestive tract; Z87.891 Personal history of nicotine dependence

== ENCOUNTER → 2018-04-13 | Outpatient (CLI) | payer OTHER ==
[~2018-04-13] MED LIST changes: -LIDOCAINE HCL 2% 2 ML VIAL (20MG/ML) ONE; +OPTIRAY 320 IV PRN; -PROPOFOL IV EMULSION 10 MG/ML 20 ML VIAL IV ONE; -SODIUM CHLORIDE 0.9% 500ML 500 ML IV ONE
--- NOTE | 2018-04-13 14:12 | DIAGNOSTIC IMAGING REPORT ---
ABDOMEN AND PELVIS CT WITH IV AND ORAL CONTRAST CT DOSE: 714.03 mGy.cm HISTORY: R10.31 Abdominal pain, bilateral lower [id number] History of TECHNIQUE: Multiaxial CT images of the abdomen and pelvis were performed following the use of intravenous and oral contrast. A dose lowering technique was utilized adhering to the principles of ALARA. COMPARISON STUDY: Abdomen and pelvis CT 05/19/2017. FINDINGS: The lung bases are clear. No pneumoperitoneum. No pneumatosis. Bilateral L5 spondylolysis with associated grade I anterolisthesis. Cholecystectomy. The liver, spleen, adrenal glands, pancreas, and right kidney are unremarkable. No hydronephrosis. Normal bladder. A 4.8 cm cyst within the lower pole of the left kidney. No retroperitoneal lymphadenopathy. The uterus and bilateral adnexa are unremarkable on diverticulosis. Normal appendix. No bowel wall thickening or obstruction. IMPRESSION: 1. No bowel wall thickening or obstruction. 2. Normal appendix. 3. Colonic diverticulosis. 4. No ureteral stones. No hydronephrosis. Electronically signed by: Yonathan Griffiths M.D. 04/13/2018 2:11 PM Dictated Date/Time: 04/13/2018 2:01 PM
== END | disposition home or self-care (01) ==
LOC: C.CTS 11:38
PROVIDERS: ATTEND Physician Assistant
DX: R10.31 Right lower quadrant pain (principal); R10.32 Left lower quadrant pain; Z87.19 Personal history of other diseases of the digestive system; K57.30 Diverticulosis of large intestine without perforation or abscess without bleeding

== ENCOUNTER → 2018-04-19 | Outpatient (CLI) | payer OTHER ==
[~2018-04-19] MED LIST changes: -OPTIRAY 320 IV PRN
--- NOTE | 2018-04-19 13:14 | DIAGNOSTIC IMAGING REPORT ---
PA CHEST RADIOGRAPH AND UPRIGHT AND SUPINE AP RADIOGRAPHS OF THE ABDOMEN CLINICAL HISTORY: Abdominal pain, nausea and vomiting. COMPARISON STUDY: Chest radiograph December 04, [address] April 13, 2018. FINDINGS: Lung volumes are normal. Lungs are clear. No pneumothorax or pleural effusion is noted. Cardiac size is normal. Mediastinal contours are normal. There is no free air. The bowel gas pattern is normal. Round and oval-shaped radiodensities within the pelvis likely reflect contrast from prior CT within diverticula. The bowel gas pattern is normal. There are cholecystectomy clips. IMPRESSION: 1. No free air or evidence of bowel obstruction. 2. No acute cardiopulmonary findings. Electronically signed by: Raman Chapman M.D. 04/19/2018 1:13 PM Dictated Date/Time: 04/19/2018 1:08 PM
== END | disposition home or self-care (01) ==
LOC: C.RAD1850 11:44
PROVIDERS: ATTEND Registered Nurse
DX: R51 Headache (principal); R11.10 Vomiting, unspecified; R14.0 Abdominal distension (gaseous); R10.9 Unspecified abdominal pain